=== PATIENT | female | born 1985 | race Caucasian/White ===

== ENCOUNTER 2016-10-22 03:49 | Emergency (ER) | payer BC ==
[~2016-10-22] VITALS: Ht 157.5 cm; Wt 57.5 kg
[~2016-10-22 03:49] MED LIST: PRENTAB26 PO
[2016-10-22 03:54] VITALS: TEMP 36.2; Ht 157.5 cm; Wt 57.5 kg
[2016-10-22] MEDS ORDERED: SODIUM CHLORIDE 0.9% 1000ML 1,000 ML IV STA (04:01)
[2016-10-22] MEDS ORDERED: ONDANSETRON INJ 2 MG/ML 2 ML VIAL IV STA (04:01)
--- NOTE | 2016-10-22 04:03 | EMERGENCY ROOM VISIT NOTE ---
History Report prepared by Abbie: Tahir Davis Under the Supervision of: Dr. Michael Richmond D.O. First contact with patient: 03:57 Chief Complaint: ABDOMINAL PAIN Stated Complaint: ABD CRAMPS AND PAIN History of Present Illness The patient is a 31 year old female who presents to the Emergency Room with complaints of waxing and waning lower abdominal "cramping" that began yesterday. The patient states that she initially experienced the cramping in her upper abdomen, but now the pain has radiated into her lower abdomen as well. She denies any recent vomiting, fevers, or vaginal bleeding. She claims that there is a minimal chance of . 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 A total of ten systems were reviewed and were otherwise negative. Past Medical & Surgical No significant past medical/surgical history. Family History Diabetes mellitus FH: heart disease Hypertension Social History Smoking Status: Never Smoker Drug Use: none Marital Status: Housing Status: lives with family Occupation Status: employed Current/Historical Medications Scheduled Citalopram Hydrobromide (Celexa), 10 MG PO DAILY Fluticasone Propionate (Nasal) (Flonase Allergy Relief), 2 [place] DAILY Multivitamin (Multivitamin), 1 TAB PO DAILY Scheduled PRN Diphenhydramine Hcl (Benadryl Allergy), 25-50 MG PO UD PRN for Anxiety and/or Sedation Hydroxyzine HCl (Hydroxyzine HCl), 10-20 MG PO TID PRN for Anxiety Allergies Coded Allergies: No Known Allergies (Unverified , 10/22/16) Physical Exam Vital Signs Date Time Temp Pulse Resp B/P (MAP) Pulse Ox O2 Delivery O2 Flow Rate FiO2 10/22/16 04:25 70 10/22/16 03:54 36.2 71 18 151/82 98 Room Air Physical Exam GENERAL: Awake, alert, well-appearing, in no distress HENT: Normocephalic, atraumatic. Oropharynx unremarkable. EYES: Normal conjunctiva. Sclera non-icteric. NECK: Supple. No nuchal rigidity. FROM. No JVD. RESPIRATORY: Clear to auscultation. CARDIAC: Regular rate, normal rhythm. Extremities warm and well perfused. Pulses equal. ABDOMEN: Soft, non-distended. No tenderness to palpation. No rebound or guarding. No masses. RECTAL: Deferred. MUSCULOSKELETAL: Chest examination reveals no tenderness. The back is symmetrical on inspection without obvious abnormality. There is no CVA tenderness to palpation. No joint edema. LOWER EXTREMITIES: Calves are equal size bilaterally and non-tender. No edema. No discoloration. NEURO: Normal sensorium. No sensory or motor deficits noted. SKIN: No rash or jaundice noted. Medical Decision & Procedures Laboratory Results 10/22/16 04:16 Red Blood Count 4.41, Mean Corpuscular Volume 87.3, Mean Corpuscular Hemoglobin 30.2, Mean Corpuscular Hemoglobin Concent 34.5, Mean Platelet Volume 10.2, Neutrophils (%) (Auto) 49.7, Lymphocytes (%) (Auto) 39.2, Monocytes (%) (Auto) 5.5, Eosinophils (%) (Auto) 4.7, Basophils (%) (Auto) 0.6, Neutrophils # (Auto) 3.42, Lymphocytes # (Auto) 2.69, Monocytes # (Auto) 0.38, Eosinophils # (Auto) 0.32, Basophils # (Auto) 0.04 10/22/16 04:16 Test 10/22/16 04:05 10/22/16 04:16 Urine Color YELLOW Urine Appearance CLEAR (CLEAR) Urine pH 5.5 (4.5-7.5) Urine Specific Lester 1.004 (1.000-1.030) Urine Protein NEG (NEG) Urine Glucose (UA) NEG (NEG) Urine Ketones NEG (NEG) Urine Occult Blood NEG (NEG) Urine Nitrite NEG (NEG) Urine Bilirubin NEG (NEG) Urine Urobilinogen NEG (NEG) Urine Leukocyte Esterase NEG (NEG) Urine Test NEG (NEG) White Blood Count 6.87 K/uL (4.8-10.8) Red Blood Count 4.41 M/uL (4.2-5.4) Hemoglobin 13.3 g/dL (12.0-16.0) Hematocrit 38.5 % (37-47) Mean Corpuscular Volume 87.3 fL (80-100) Mean Corpuscular Hemoglobin 30.2 pg (25-34) Mean Corpuscular Hemoglobin Concent 34.5 g/dl (32-36) Platelet Count 288 K/uL (130-400) Mean Platelet Volume 10.2 fL (7.4-10.4) Neutrophils (%) (Auto) 49.7 % Lymphocytes (%) (Auto) 39.2 % Monocytes (%) (Auto) 5.5 % Eosinophils (%) (Auto) 4.7 % Basophils (%) (Auto) 0.6 % Neutrophils # (Auto) 3.42 K/uL (1.4-6.5) Lymphocytes # (Auto) 2.69 K/uL (1.2-3.4) Monocytes # (Auto) 0.38 K/uL (0.11-0.59) Eosinophils # (Auto) 0.32 K/uL (0-0.5) Basophils # (Auto) 0.04 K/uL (0-0.2) RDW Standard Deviation 40.8 fL (36.4-46.3) RDW Coefficient of Variation 12.7 % (11.5-14.5) Immature Granulocyte % (Auto) 0.3 % Immature Granulocyte # (Auto) 0.02 K/uL (0.00-0.02) Anion Gap 6.0 mmol/L (3-11) Est Creatinine Clear Calc Drug Dose 69.6 ml/min Estimated GFR () 96.1 Estimated GFR (Non- 82.9 BUN/Creatinine Ratio 9.6 (10-20) Calcium Level 8.1 mg/dl (8.5-10.1) Total Bilirubin 0.4 mg/dl (0.2-1) Direct Bilirubin 0.1 mg/dl (0-0.2) Aspartate Amino Transf (AST/SGOT) 34 U/L (15-37) Alanine Aminotransferase (ALT/SGPT) 89 U/L (12-78) Alkaline Phosphatase 64 U/L (45-117) Total Protein 7.5 gm/dl (6.4-8.2) Albumin 4.5 gm/dl (3.4-5.0) Lipase 196 U/L (73-393) Laboratory results reviewed by me Medications Administered Medications (Trade) Dose Ordered Sig/Hernan Route Start Time Stop Time Status Last Admin Dose Admin Sodium Chloride 1,000 ml @ 999 mls/hr Q1H1M STAT IV 10/22/16 04:01 10/22/16 05:01 DC 10/22/16 04:16 999 MLS/HR Ondansetron HCl (Zofran Inj) 4 mg NOW STAT IV 10/22/16 04:01 10/22/16 04:03 DC 10/22/16 04:16 4 MG Dicyclomine HCl (Bentyl Inj) 20 mg NOW ONCE IM 10/22/16 04:15 10/22/16 04:16 DC 10/22/16 04:16 20 MG ED Course 0359: The patient was evaluated in room B12. A complete history and physical exam was performed. 0401: Ordered Zofran 4 mg IV, Sodium Chloride 1000 mL @ 999 mL/hr IV. 0415: Ordered Bentyl Inj 20 mg IM. 0503: I reevaluated the patient. She is resting in no distress. I discussed results and discharge instructions: [] verbalized understanding and agreement. The patient is ready for discharge. Medical Decision Differential Diagnosis includes; gastritis, gastroenteritis, colitis, biliary colic, Patient resting in no distress on repeat examination. Her abdominal pain appears positional on reexamination. There is no significant tenderness in the right upper or right lower quadrants. I discussed evaluation the patient she has a normal white blood cell; she is not , has normal urinalysis. Currently I do not suspect appendicitis. I have given the patient patient's at bedside information on increased abdominal pain fever anorexia and other reasons to return. Impression Primary Impression: Abdominal pain Scribe Attestation The scribe's documentation has been prepared under my direction and personally reviewed by me in its entirety. I confirm that the note above accurately reflects all work, treatment, procedures, and medical decision making performed by me. Departure Information Dispostion Home / Self-Care Prescriptions Dicyclomine Hcl (BENTYL) 20 Mg Tab 20 MG PO Q6, #10 TAB Prov: Michael Richmond, DO 10/22/16 Ondasetron Odt (ZOFRAN ODT) 4 Mg Tab 4 MG SL Q6H for Nausea, #6 TAB Prov: Michael Richmond, DO 10/22/16 Referrals No Doctor, Assigned (PCP) Patient Instructions Abdominal Pain - [facility], My [facility]
[2016-10-22] MEDS ORDERED: DICYCLOMINE HCL 10 MG/ML 2 ML AMP IM ONE (04:15)
[2016-10-22] MEDS ORDERED: FLUT0.15 NAE (04:28)
[2016-10-22] MEDS ORDERED: MULT-506 PO (04:28)
[2016-10-22] MEDS ORDERED: CITA10TA8 PO (04:28)
[2016-10-22] MEDS ORDERED: DIPH25CA65 PO (04:29)
[2016-10-22] MEDS ORDERED: ATR10 PO (04:29)
[2016-10-22 04:30] LABS: URINE APPEARANCE CLEAR (CLEAR); URINE BILIRUBIN NEG (NEG); URINE COLOR YELLOW; URINE NITRITE NEG (NEG); URINE PH 5.5 (4.5-7.5); URINE SPECIFIC GRAVITY 1.004 (1.000-1.030); UROBILINOGEN NEG (NEG); ZZUR CULT IF INDIC CLEAN CATCH NO
[2016-10-22 04:30] LABS: BASO % 0.6 %; BASO ABS # 0.04 K/uL (0-0.2); COMPLETE YES; EOS % 4.7 %; HEMATOCRIT 38.5 % (37-47); IG% 0.3 %; LYMPH % 39.2 %; LYMPH ABS # 2.69 K/uL (1.2-3.4); MEAN CELL VOLUME 87.3 fL (80-100); MEAN CORPUSCULAR HEMOGLOBIN 30.2 pg (25-34); MEAN CORPUSCULAR HGB CONC 34.5 g/dl (32-36); MEAN PLATELET VOLUME 10.2 fL (7.4-10.4); MONO % 5.5 %; NEUT % 49.7 %; PLATELET COUNT 288 K/uL (130-400); RED BLOOD COUNT 4.41 M/uL (4.2-5.4); WHITE BLOOD COUNT 6.87 K/uL (4.8-10.8)
[2016-10-22 04:45] LABS: MANUAL MICROSCOPIC REQUIRED? NO; REVIEW REQ? NO
[2016-10-22 04:52] LABS: BUN/CREATININE RATIO 9.6 (10-20); CALCIUM 8.1 mg/dl (8.5-10.1); CREATININE 0.91 mg/dl (0.60-1.20); POTASSIUM 3.7 mmol/L (3.5-5.1)
[2016-10-22] MEDS ORDERED: ONDA4TAB10 SL (05:11)
[2016-10-22] MEDS ORDERED: DICY20TA35 PO (05:11)
[2016-10-22 05:31] VITALS: BP 100/61; PULSE 56; O2SAT 100
== END 2016-10-22 05:32 | disposition home or self-care (01) ==
LOC: C.EDB 03:51
DX: R10.30 Lower abdominal pain, unspecified (principal); Z79.899 Other long term (current) drug therapy; Z83.3 Family history of diabetes mellitus; Z82.49 Family history of ischemic heart disease and other diseases of the circulatory system

== ENCOUNTER 2017-06-28 17:56 | Inpatient (IN) | payer BC, OTHER ==
[~2017-06-28] VITALS: Ht 157.5 cm; Wt 63.1 kg
[~2017-06-28 17:56] MED LIST changes: +ATR10 PO; +CITA10TA8 PO; +DIPH25CA65 PO; +FLUT0.15 NAE; +MULT-506 PO; -PRENTAB26 PO
[2017-06-28] MEDS ORDERED: ACETAMINOPHEN 500 MG TAB PO STA (18:07)
[2017-06-28] MEDS ORDERED: PRENTAB26 PO (18:15)
[2017-06-28] MEDS ORDERED: CITA20TA9 PO (18:15)
[2017-06-28] MEDS ORDERED: CHOL100010 PO (18:15)
[2017-06-28 18:30] LABS: HEMATOCRIT 29.5 % (37-47); HEMOGLOBIN 10.5 g/dL (12.0-16.0); MEAN CELL VOLUME 86.8 fL (80-100); MEAN CORPUSCULAR HEMOGLOBIN 30.9 pg (25-34); MEAN CORPUSCULAR HGB CONC 35.6 g/dl (32-36); MEAN PLATELET VOLUME 10.1 fL (7.4-10.4); PLATELET COUNT 192 K/uL (130-400); RED CELL DISTRIBUTION WIDTH SD 41.5 fL (36.4-46.3); WHITE BLOOD COUNT 14.64 K/uL (4.8-10.8)
[2017-06-28] MEDS ORDERED: SODIUM CHLORIDE 0.9% 1000ML 1,000 ML IV STA (18:30)
--- NOTE | 2017-06-28 18:31 | DIAGNOSTIC IMAGING REPORT ---
CHEST ONE VIEW PORTABLE HISTORY: cough COMPARISON: None. FINDINGS: Small focal airspace opacity within the right medial lung base. The left lung is clear. The heart is normal in size. No pleural effusions. No pneumothorax. IMPRESSION: Small focal airspace opacity in the right medial lung base consistent with a pneumonia. Electronically signed by: Ronaldo Harley M.D. 06/28/2017 6:30 PM Dictated Date/Time: 06/28/2017 6:29 PM
[2017-06-28 18:49] LABS: ALBUMIN 2.7 gm/dl (3.4-5.0); ALT/SGPT 15 U/L (12-78); AST/SGOT 10 U/L (15-37); BLOOD UREA NITROGEN 7 mg/dl (7-18); CARBON DIOXIDE 21 mmol/L (21-32); CREATININE 0.86 mg/dl (0.60-1.20); GLUCOSE 112 mg/dl (70-99); POTASSIUM 3.3 mmol/L (3.5-5.1); SODIUM 131 mmol/L (136-145)
[2017-06-28 18:52] LABS: ALKALINE PHOSPHATASE 57 U/L (45-117); TOTAL PROTEIN 6.6 gm/dl (6.4-8.2)
--- NOTE | 2017-06-28 18:54 | EMERGENCY ROOM VISIT NOTE ---
History Report prepared by Abbie: Luis Pope Under the Supervision of: Dr. Nathan Mustafa D.O. First contact with patient: 18:01 Chief Complaint: FLU LIKE SX Stated Complaint: RT SIDE CHEST PAIN, FEVER, CHILLS, ACHES,KLEIN, 16WKS History of Present Illness The patient is a 32 year old female who presents to the Emergency Room with complaints of persistent flu like symptoms for the past 3-4 days. She states that it started with a cough which has some phlegm, though she is not spitting anything out. She additionally states that she has a fever of 100.5, runny nose , ear pain, congestion, and a sore throat. The patient additionally notes that she has a worsening sharp chest pain that is worsened with twisting, bending, and turning. She states that she is unable to inhale deeply due to the pain. She is currently 16 weeks , and this is her third . She denies any past history of hypertension, high cholesterol, diabetes, and heart disease. Pt denies headache, change in vision, nausea, vomiting, diarrhea, calf swelling, pain with urination, and melena. Source of History: patient Onset: 3-4 days ago Position: other (global) Quality: other (flu like symptoms) Timing: other (persistent) Associated Symptoms: + fevers, + sorethroat, + chest pain Note: Associated symptoms: runny nose, ear pain, and congestion Review of Systems See HPI for pertinent positives & negatives. A total of 10 systems reviewed and were otherwise negative. Past Medical & Surgical Medical Problems: (1) Pneumonia Family History Diabetes mellitus FH: heart disease Hypertension Social History Smoking Status: Never Smoker Drug Use: none Marital Status: Housing Status: lives with family Occupation Status: employed Current/Historical Medications Scheduled Cholecalciferol (Vitamin D), 1 TAB PO DAILY Citalopram Hydrobromide (Celexa), 20 MG PO DAILY Multivit/Min/Iron/Fol Ac/Pren ( Vitamin), 1 TAB PO DAILY Allergies Coded Allergies: No Known Allergies (Unverified , 06/28/17) Physical Exam Vital Signs Date Time Temp Pulse Resp B/P (MAP) Pulse Ox O2 Delivery O2 Flow Rate FiO2 06/28/17 20:24 103 20 121/64 97 Room Air 06/28/17 17:58 39.1 118 20 118/64 98 Room Air Physical Exam GENERAL: Sitting up in bed, dry non-productive cough, no acute distress, non- toxic. EYE EXAM: normal conjunctiva. OROPHARYNX: no exudate, no erythema, lips, buccal mucosa, and tongue normal and mucous membranes are moist NECK: supple, no nuchal rigidity, no adenopathy, non-tender LUNGS: Clear to auscultation. Normal chest wall mechanics HEART: no murmurs, S1 normal and S2 normal CHEST: Acute reproducible anterior right chest wall pain worsened with movement of the upper extremity. ABDOMEN: Gravid uterus at the level of the umbilicus. Abdomen soft, non-tender, normo-active bowel sounds, no masses, no rebound or guarding. BACK: Back is symmetrical on inspection and there is no deformity, no midline tenderness, no CVA tenderness. SKIN: no rashes and no bruising UPPER EXTREMITIES: upper extremities are grossly normal. LOWER EXTREMITIES: Calves are equal bilaterally. No pitting edema. NEURO EXAM: Normal sensorium, cranial nerves II-XII grossly intact, normal speech, no gross weakness of arms, no gross weakness of legs. Medical Decision & Procedures ER Provider Diagnostic Interpretation: Radiology results as stated below per my review and the radiologist's interpretation: CHEST ONE VIEW PORTABLE HISTORY: cough COMPARISON: None. FINDINGS: Small focal airspace opacity within the right medial lung base. The left lung is clear. The heart is normal in size. No pleural effusions. No pneumothorax. IMPRESSION: Small focal airspace opacity in the right medial lung base consistent with a pneumonia. Electronically signed by: Ronaldo Harley M.D. 06/28/2017 6:30 PM Dictated Date/Time: 06/28/2017 6:29 PM Laboratory Results 06/28/17 18:20 Red Blood Count 3.40, Mean Corpuscular Volume 86.8, Mean Corpuscular Hemoglobin 30.9, Mean Corpuscular Hemoglobin Concent 35.6, Mean Platelet Volume 10.1, Neutrophils (%) (Auto) 90.0, Lymphocytes (%) (Auto) 3.9, Monocytes (%) (Auto) 5.7, Eosinophils (%) (Auto) 0.0, Basophils (%) (Auto) 0.1, Neutrophils # (Auto) 13.18, Lymphocytes # (Auto) 0.57, Monocytes # (Auto) 0.83, Eosinophils # (Auto) 0.00, Basophils # (Auto) 0.01 06/28/17 18:20 Test 06/28/17 18:20 06/28/17 18:28 06/28/17 18:37 White Blood Count 14.64 K/uL (4.8-10.8) Red Blood Count 3.40 M/uL (4.2-5.4) Hemoglobin 10.5 g/dL (12.0-16.0) Hematocrit 29.5 % (37-47) Mean Corpuscular Volume 86.8 fL (80-100) Mean Corpuscular Hemoglobin 30.9 pg (25-34) Mean Corpuscular Hemoglobin Concent 35.6 g/dl (32-36) Platelet Count 192 K/uL (130-400) Mean Platelet Volume 10.1 fL (7.4-10.4) Neutrophils (%) (Auto) 90.0 % Lymphocytes (%) (Auto) 3.9 % Monocytes (%) (Auto) 5.7 % Eosinophils (%) (Auto) 0.0 % Basophils (%) (Auto) 0.1 % Neutrophils # (Auto) 13.18 K/uL (1.4-6.5) Lymphocytes # (Auto) 0.57 K/uL (1.2-3.4) Monocytes # (Auto) 0.83 K/uL (0.11-0.59) Eosinophils # (Auto) 0.00 K/uL (0-0.5) Basophils # (Auto) 0.01 K/uL (0-0.2) RDW Standard Deviation 41.5 fL (36.4-46.3) RDW Coefficient of Variation 13.0 % (11.5-14.5) Immature Granulocyte % (Auto) 0.3 % Immature Granulocyte # (Auto) 0.05 K/uL (0.00-0.02) Large Platelets 1+ Anion Gap 9.0 mmol/L (3-11) Estimated GFR () 102.2 Estimated GFR (Non- 88.1 BUN/Creatinine Ratio 8.1 (10-20) Calcium Level 8.0 mg/dl (8.5-10.1) Total Bilirubin 0.3 mg/dl (0.2-1) Direct Bilirubin 0.1 mg/dl (0-0.2) Aspartate Amino Transf (AST/SGOT) 10 U/L (15-37) Alanine Aminotransferase (ALT/SGPT) 15 U/L (12-78) Alkaline Phosphatase 57 U/L (45-117) Total Protein 6.6 gm/dl (6.4-8.2) Albumin 2.7 gm/dl (3.4-5.0) Influenza Type A Antigen Neg for Influ A (NEG) Influenza Type B Antigen Neg for Influ B (NEG) Laboratory results per my review. Medications Administered Medications (Trade) Dose Ordered Sig/Hernan Route Start Time Stop Time Status Last Admin Dose Admin Acetaminophen (Tylenol Tab) 1,000 mg NOW STAT PO 06/28/17 18:07 06/28/17 18:09 DC 06/28/17 19:07 1,000 MG Sodium Chloride 1,000 ml @ 999 mls/hr Q1H1M STAT IV 06/28/17 18:30 06/28/17 19:30 DC 06/28/17 19:07 999 MLS/HR Amoxicillin/ Clavulanate Potassium (Augmentin Tab) 875 mg ONE ONCE PO 06/28/17 19:00 06/28/17 19:01 DC 06/28/17 19:07 875 MG Ceftriaxone Sodium (Rocephin Inj) 1 gm NOW STAT IV 06/28/17 20:30 06/28/17 20:31 DC 06/28/17 20:47 1 GM Ondansetron HCl (Zofran Inj) 4 mg NOW STAT IV 06/28/17 20:30 06/28/17 20:31 DC 06/28/17 20:47 4 MG Sodium Chloride 500 ml @ 999 mls/hr Q31M STAT IV 06/28/17 20:30 06/28/17 21:00 DC 06/28/17 20:47 999 MLS/HR ECG Indication: chest pain Rate (beats per minute): 98 Rhythm: sinus rhythm Findings: RBBB (incomplete), other (normal axis) Change: Patient's EKG interpreted by me. ED Course ED COURSE: Vital signs were reviewed and showed febrile and tachycardia The patients medical record was reviewed The above diagnostic studies were performed and reviewed. ED treatments and interventions as stated above. 1801: The patient was evaluated in room A12. A complete history and physical examination was performed. 1807: Tylenol Tab 1000mg PO 1830: Sodium Chloride 1000 ml @ 999 mls/hr IV 0: I reassessed the patient, and I updated her on the plan. 1900: Augmentin 875mg PO 2029: Sodium Chloride 500 ml @ 999 mls/hr IV, Zofran 4mg IV, Rocephin 1gm IV 2031: I discussed the patient's case with the precision jig grinder [facility] physician, and they recommended that the patient be evaluated by a hospitalist. 2034: I reevaluated the patient, and I discussed the plan with her. 2046: Upon reevaluation, the patient is doing well. Bedside ultrasound reveals IUP and heart rate of 160 .I discussed my findings with the patient and she understands and agrees with the treatment plan. Based on the patients age, coexisting illnesses, exam and lab findings the decision to treat as an inpatient was made. The patient remained stable while under my care. The patient will be evaluated for further management. 2053: I reviewed the patient's case with Dr. Walker Carlos Hospitalist. She will evaluate the patient for further management. Medical Decision Differential diagnoses includes but is not limited to acute coronary syndrome, myocardial infarction, pericarditis, pulmonary embolus, aortic dissection, pneumonia, pneumothorax, musculoskeletal, shingles, esophageal. Patient is a 32-year-old female who is 16 weeks without complications that presents to ER for pleuritic right-sided chest pain associated with a cough, runny nose and sore throat and ear congestion. Symptoms have been present for the past 4 days. Vital show that she is febrile and slightly tachycardic. Chest x-ray confirms a right lower lobe infiltrate consistent with her history. Pleuritic pain is reproducible on exam and with the pneumonia I do favor this is likely cause of this and a PE is significantly less likely. CBC shows a mild leukocytosis of 14,000. BMP shows sodium of 131 and potassium of 3.3. Bilirubin, LFTs were normal. EKG was fairly unremarkable. Patient was given fluids, Tylenol and Augmentin which category B. She was updated at bedside. I did discuss case with PIN SETTER. She did vomit the Augmentin. Bedside ultrasound shows IUP with heart rate of 160. Patient was admitted to internal medicine with fever, tachycardia and leukocytosis secondary to pneumonia. Medication Reconcilliation Current Medication List: was personally reviewed by me Blood Pressure Screening Patient's blood pressure: Normal blood pressure Consults Time Called: 2028 Consulting Physician: call circuit worker [facility] OB physician Returned Call: 2031 I discussed the patient's case with the precision jig grinder [facility] physician, and they recommended that the patient be evaluated by a hospitalist. Additional Consults: Time Called: 2049 Consulted Physician: Dr. Walker [facility] Returned Call: 2053 Additional Comments: I reviewed the patient's case with Dr. Walker Villanueva. She will evaluate the patient for further management. Impression Primary Impression: Pneumonia Additional Impression: Anemia Scribe Attestation The scribe's documentation has been prepared under my direction and personally reviewed by me in its entirety. I confirm that the note above accurately reflects all work, treatment, procedures, and medical decision making performed by me. Departure Information Dispostion Being Evaluated By Hospitalist Referrals Rona Keene D.O. (PCP) Patient Instructions My [facility] Problem Qualifiers Primary Impression: Pneumonia Pneumonia type: due to unspecified organism Laterality: unspecified laterality Lung location: unspecified part of lung Qualified Codes: J18.9 - Pneumonia, unspecified organism Additional Impression: Anemia Anemia type: unspecified type Qualified Codes: D64.9 - Anemia, unspecified
[2017-06-28 18:57] LABS: BASO % 0.1 %; BASO ABS # 0.01 K/uL (0-0.2); IG# 0.05 K/uL (0.00-0.02); LYMPH % 3.9 %; LYMPH ABS # 0.57 K/uL (1.2-3.4); MONO % 5.7 %; MONO ABS # 0.83 K/uL (0.11-0.59); NEUT ABS # 13.18 K/uL (1.4-6.5)
[2017-06-28] MEDS ORDERED: AMOXICILLIN/CLAVULANATE TAB 875 MG TAB PO ONE (19:00)
[2017-06-28 19:06] LABS: INFLUENZA B ANTIGEN Neg for Influ B (NEG)
[2017-06-28] MEDS ORDERED: CEFTRIAXONE SOD INJ 1 GM ADDVIAL IV STA (20:30)
[2017-06-28] MEDS ORDERED: ONDANSETRON INJ 2 MG/ML 2 ML VIAL IV STA (20:30)
[2017-06-28] MEDS ORDERED: SODIUM CHLORIDE 0.9% 500ML 500 ML IV STA (20:30)
[2017-06-28] MEDS ORDERED: ACETAMINOPHEN 325 MG TAB PO PRN (22:15)
--- NOTE | 2017-06-28 22:55 | History and Physical ---
History & Physical Date & Time of Service: Jun 28, 2017 at 22:27 Chief Complaint: Rt Side Chest Pain, Fever, Chills, Aches,Bush, 16WKS Primary Care Physician: Rona Keene D.O. History of Present Illness Source: patient Patient is a 32 yr female with PMH of Depression, anxiety, Vitamin D deficiency , and allergies who is currently 16 weeks presents with history of fever, cough, right sided pleuritic chest pain and post nasal drip since 3 days duration. Patient's chest pain is right sided, sharp to dull, increases with deep inspiration. She has been having low grade fever since 2 days duration. Reports associated mild SOB and cough with intermittent expectoration. She received Augmentin in ED which she vomited secondary to nausea. CXR is suggestive of Pneumonia and Flu screen is negative. Had monitor was checked in ED. Denies any history of dizziness, pedal edema, wheezing, hemoptysis, fall, weakness, numbness, change in vision, bowel/bladder habit changes, abdominal pain, diarrhea, weight loss, dysuria, recent travel, sick contact, recent change in medications. Family History Diabetes mellitus FH: heart disease Hypertension Mother:HTN Father:Thyroid disease Social History Smoking Status: Never Smoker Alcohol Use: none Drug Use: none Marital Status: Occupational Status: employed Immunizations History of Influenza Vaccine: No History of Tetanus Vaccine?: No Allergies Coded Allergies: No Known Allergies (Unverified , 06/28/17) Home Medications Scheduled Cholecalciferol (Vitamin D), 1 TAB PO DAILY Citalopram Hydrobromide (Celexa), 20 MG PO DAILY Multivit/Min/Iron/Fol Ac/Pren ( Vitamin), 1 TAB PO DAILY Review of Systems See HPI for pertinent positives & negatives. A total of 10 systems reviewed and were otherwise negative. Physical Exam Vital Signs Date Time Temp Pulse Resp B/P (MAP) Pulse Ox O2 Delivery O2 Flow Rate FiO2 06/28/17 20:24 103 20 121/64 97 Room Air 06/28/17 17:58 39.1 118 20 118/64 98 Room Air General Appearance: WD/WN, no apparent distress Head: normocephalic, atraumatic Eyes: normal inspection, PERRL, EOMI, sclerae normal ENT: normal ENT inspection, hearing grossly normal Neck: supple, trachea midline Respiratory/Chest: chest non-tender, lungs clear, no respiratory distress, no accessory muscle use, + decreased breath sounds (on right side) Cardiovascular: regular rate, rhythm, no edema, no murmur, + tachycardia Abdomen/GI: normal bowel sounds, non tender, soft, + pertinent finding ( ) Back: normal inspection Extremities/Musculoskelatal: normal inspection, no pedal edema Neurologic/Psych: principal investigator II-XII nml as tested, no motor/sensory deficits, alert, normal mood/affect, oriented x 3 Skin: normal color, warm/dry Diagnostics Laboratory Results Results Past 24 Hours Test 06/28/17 18:20 06/28/17 18:28 06/28/17 22:23 Range/Units White Blood Count 14.64 4.8-10.8 K/uL Red Blood Count 3.40 4.2-5.4 M/uL Hemoglobin 10.5 12.0-16.0 g/dL Hematocrit 29.5 37-47 % Mean Corpuscular Volume 86.8 80-100 fL Mean Corpuscular Hemoglobin 30.9 25-34 pg Mean Corpuscular Hemoglobin Concent 35.6 32-36 g/dl Platelet Count 192 130-400 K/uL Mean Platelet Volume 10.1 7.4-10.4 fL Neutrophils (%) (Auto) 90.0 % Lymphocytes (%) (Auto) 3.9 % Monocytes (%) (Auto) 5.7 % Eosinophils (%) (Auto) 0.0 % Basophils (%) (Auto) 0.1 % Neutrophils # (Auto) 13.18 1.4-6.5 K/uL Lymphocytes # (Auto) 0.57 1.2-3.4 K/uL Monocytes # (Auto) 0.83 0.11-0.59 K/uL Eosinophils # (Auto) 0.00 0-0.5 K/uL Basophils # (Auto) 0.01 0-0.2 K/uL RDW Standard Deviation 41.5 36.4-46.3 fL RDW Coefficient of Variation 13.0 11.5-14.5 % Immature Granulocyte % (Auto) 0.3 % Immature Granulocyte # (Auto) 0.05 0.00-0.02 K/uL Large Platelets 1+ Sodium Level 131 136-145 mmol/L Potassium Level 3.3 3.5-5.1 mmol/L Chloride Level 101 98-107 mmol/L Carbon Dioxide Level 21 21-32 mmol/L Anion Gap 9.0 3-11 mmol/L Blood Urea Nitrogen 7 7-18 mg/dl Creatinine 0.86 0.60-1.20 mg/dl Estimated GFR () 102.2 Estimated GFR (Non- 88.1 BUN/Creatinine Ratio 8.1 10-20 Random Glucose 112 70-99 mg/dl Calcium Level 8.0 8.5-10.1 mg/dl Total Bilirubin 0.3 0.2-1 mg/dl Direct Bilirubin 0.1 0-0.2 mg/dl Aspartate Amino Transf (AST/SGOT) 10 15-37 U/L Alanine Aminotransferase (ALT/SGPT) 15 12-78 U/L Alkaline Phosphatase 57 45-117 U/L Total Protein 6.6 6.4-8.2 gm/dl Albumin 2.7 3.4-5.0 gm/dl Influenza Type A Antigen Neg for Influ A NEG Influenza Type B Antigen Neg for Influ B NEG Microbiology Results 06/28/17 Blood Culture, Ordered Pending 06/28/17 Blood Culture, Ordered Pending 06/28/17 Group A Streptococcus Screen - Final, Resulted SPECIMEN NEGATIVE FOR GROUP A BETA ST... 06/28/17 Group A Streptococcus Screen (RAJESH), Resulted Pending Diagnostic Radiology CXR: Small focal airspace opacity in the right medial lung base consistent with a pneumonia. EKG EKG: Normal sinus rhythm Incomplete right bundle branch block Impression Assessment and Plan Sepsis: CAP: Presented with Pleuritic chest pain, cough, fever, tachycardia, elevated WBCs CXR: suggestive of Small focal airspace opacity in the right medial lung base consistent with a pneumonia. Could not tolerated PO Abx secondary to nausea/vomiting Start IV Ceftriaxone, Azithromycin (Category B) IV Fluids Oxygen support PRN Blood/Sputum cultures check lactate levels Incentive Spirometry Flu screen negative, check PCR Droplet isolation for now Hyponatremia/Hypokalemia: Monitor and replace IV fluids Anemia in ; Monitor Hb No bleeding issues : , 16 weeks monitor checked in ED Consult OBGYN Continue Depression, anxiety: Was Celexa (Patient currently takes) Celexa is Category C: so hold Celexa for now Vitamin D deficiency; Continue supplements DVT Px: SCDs Code Status: Full Code Disposition: Monitor in Telemetry VTE Prophylaxis VTE Risk Assessment Done? Y/N: Yes Risk Level: Low
[2017-06-28] MEDS: NSS + 20MEQ KCL 1000ML 1,000 ML IV SCH (23:21)
[2017-06-28] MEDS ORDERED: CEFTRIAXONE PHARMACY CONSULT IN PROGRESS PRN (23:24)
[2017-06-28] MEDS ORDERED: PATIENT'S HEIGHT AND/OR WEIGHT NEEDED SCH (23:30)
[2017-06-28 23:52] VITALS: BP 108/65; PULSE 97; TEMP 36.8; O2SAT 98; Ht 157.5 cm; Wt 63.1 kg
[2017-06-29] VITALS (9 sets, daily range): BP systolic 100–112; BP diastolic 47–59; PULSE 84–102; TEMP 36.5–37.7; O2SAT 95–100
[2017-06-29] MEDS ORDERED: AZITHROMYCIN 500 MG / D5W 250 ML IV SCH ×2
[2017-06-29 00:33] LABS: INFLUENZA A PCR Neg for Influ A (NEG); INFLUENZA B PCR Neg for Influ B (NEG)
--- NOTE | 2017-06-29 02:06 | GYNECOLOGICAL CONSULTATION ---
DATE OF CONSULTATION: 06/28/2017 CHIEF COMPLAINT: Admission for pneumonia, 16 weeks . HISTORY OF PRESENT ILLNESS: The patient is a 32-year-old G3, P2-0-0-2, at 16 weeks and 3 days gestation by her last menstrual period which was on 04/06/2017. She has been having right-sided chest pain, cough, fever, chills for the last 4 days, it got worse last night. She presented to ER and was found to have pneumonia and being admitted to medical department for IV antibiotics. She received Augmentin in the ER and her flu screen testing was negative. Her has been uncomplicated except this current admission. She denies any OB complaints. Denies abdominal pain, cramping, vaginal bleeding or spotting. She has not had official ultrasound in the office. A bedside ultrasound in the ER showed normal heart rate, see their note for details. This is her 3rd . PAST MEDICAL HISTORY: As above, history of depression, carpal tunnel syndrome, allergic rhinitis. PAST SURGICAL HISTORY: Shattuck teeth extraction and cryotherapy of cervix. MEDICATIONS: vitamins, vitamin D 1000 units once a day, Celexa 20 mg daily. ALLERGIES: No known drug allergies. SOCIAL HISTORY: The patient denies any smoking, alcohol or drug use. OBSTETRICAL HISTORY: The patient has history of 2 full-term spontaneous vaginal deliveries, 5 and 8 years ago. PHYSICAL EXAMINATION: VITAL SIGNS: Her pulse is 98, respiration 20, blood pressure 121/64, temperature was 39.1 in the ER, pulse ox 97% on room air. CARDIOVASCULAR: S1, S2, RRR. Mild tachycardia. ABDOMEN: Soft, nontender, gravid. heart rate with Doppler is 152. EXTREMITIES: Nontender, no edema. PELVIC: Deferred. No vaginal bleeding. LABORATORY DATA: Her white count is 14.6, H&H of 10.5 and 29.5, platelets 192. Lactic acid is 0.7, creatinine 0.8. ALT and AST are normal. Chest x-ray: Small focal airspace opacity in the right medial lung base consistent with pneumonia. ASSESSMENT AND PLAN: The patient is a 32-year-old G3, P2-0-0-2, at 16 weeks and 3 days of gestation, being admitted to medicine for pneumonia, on IV Rocephin and azithromycin. Agree with treatment above and plan to start iron for anemia and obtain official ultrasound by radiology department and continue to monitor closely. MTDD
[2017-06-29 06:45] LABS: HEMATOCRIT 24.9 % (37-47); HEMOGLOBIN 8.7 g/dL (12.0-16.0); MEAN CELL VOLUME 87.1 fL (80-100); MEAN CORPUSCULAR HEMOGLOBIN 30.4 pg (25-34); MEAN CORPUSCULAR HGB CONC 34.9 g/dl (32-36); MEAN PLATELET VOLUME 10.4 fL (7.4-10.4); PLATELET COUNT 161 K/uL (130-400); RED CELL DISTRIBUTION WIDTH CV 13.1 % (11.5-14.5); RED CELL DISTRIBUTION WIDTH SD 42.1 fL (36.4-46.3); WHITE BLOOD COUNT 9.95 K/uL (4.8-10.8)
--- NOTE | 2017-06-29 06:53 | DIAGNOSTIC IMAGING REPORT ---
LIMITED (US) HISTORY: 32 years-old Female DATING pelvic ultrasound in a patient to confirm gestational age. Patient presents with acute pneumonia COMPARISON: None available TECHNIQUE: Multiple real-time sonographic images of the deep pelvic structures were obtained transabdominally assessing grayscale appearance and color flow FINDINGS: Anteflexed gravid uterus is noted. Cervical length is 4.2 cm, within normal limits. Placenta is noted within an anterior location and demonstrates ill-defined central areas of decreased echogenicity which may reflect venous lakes. LARON is 10.5, lower limits of normal. Head circumference measures 14.0 cm, correlating with estimated gestational age of 17 weeks 3 days. BPD measures 3.6 cm correlating with estimated gestational age of 17 weeks 1 day. Abdominal circumference measures 11.5 cm correlating with estimated gestational age of 17 weeks 2 days. Femur length measures 2.2 cm correlating with estimated gestational age of 16 weeks 3 days. heart rate measures 149 bpm. movements were reported during the exam by the retail advisor. Fetus is in a breech presentation. Overall gestational age is calculated at 16 weeks 3 days with estimated date of delivery calculated at 12/10/2017. IMPRESSION: 1. Single living intrauterine gestation with estimated gestational age by ultrasound of 16 weeks 3 days and estimated date of delivery calculated at 12/10/2017. 2. Suggested venous lakes of the placenta. 3. LARON is within the lower limits of normal. Attention at follow-up recommended. The above report was generated using voice recognition software. It may contain grammatical, syntax or spelling errors. Electronically signed by: Yoan Sexton M.D. 06/29/2017 6:52 AM Dictated Date/Time: 06/29/2017 6:43 AM
[2017-06-29 07:19] LABS: CALCIUM 7.3 mg/dl (8.5-10.1); CREATININE 0.61 mg/dl (0.60-1.20); POTASSIUM 3.6 mmol/L (3.5-5.1)
[2017-06-29] MEDS: PRENATAL VITAMIN TAB PO SCH (09:12)
[2017-06-29] MEDS: FERROUS SULFATE 325 MG TAB PO SCH (09:12)
--- NOTE | 2017-06-29 09:40 | Progress Note ---
Medicine Progress Note Date & Time of Visit: Jun 29, 2017 at 09:33. Subjective patient seen resting in bed comfortable, speaks in sentences with no effort states she feels improved compared to yesterday right sided chest discomfort, dyspnea on exertion, cough improving Objective Last 8 Hrs Date Time Temp Pulse Resp B/P (MAP) Pulse Ox O2 Delivery O2 Flow Rate FiO2 06/29/17 08:03 97 Room Air 06/29/17 08:00 Room Air 06/29/17 07:56 37.0 95 16 111/59 (76) 97 Room Air 0.0 06/29/17 07:21 37.4 91 14 100/47 (64) 95 Room Air 06/29/17 04:00 97 Room Air 06/29/17 03:38 37.7 102 18 112/57 (75) 97 Room Air Physical Exam: General- oriented x 3, not in distress, speaks in sentences with no effort Head- atraumatic Eyes- PERRL, EOMI, anicteric ENT- oropharynx clear Neck- supple, no JVD, no adenopathy, no thyromegaly; carotids +2/2 Lungs- mild rhonchi right base, no wheezing, good air entry bilaterally Heart- normal rate, regular rhythm; no murmurs Abdomen- normal bowel sounds, soft, nontender Extremities- no pretibial edema, no calf tenderness; peripheral pulses intact Neuro- alert, oriented x 3; no gross focal neuro deficits Skin- warm & dry Laboratory Results: Last 24 Hours Test 06/28/17 18:20 06/28/17 18:28 06/28/17 18:37 06/28/17 22:53 White Blood Count 14.64 K/uL Red Blood Count 3.40 M/uL Hemoglobin 10.5 g/dL Hematocrit 29.5 % Mean Corpuscular Volume 86.8 fL Mean Corpuscular Hemoglobin 30.9 pg Mean Corpuscular Hemoglobin Concent 35.6 g/dl Platelet Count 192 K/uL Mean Platelet Volume 10.1 fL Neutrophils (%) (Auto) 90.0 % Lymphocytes (%) (Auto) 3.9 % Monocytes (%) (Auto) 5.7 % Eosinophils (%) (Auto) 0.0 % Basophils (%) (Auto) 0.1 % Neutrophils # (Auto) 13.18 K/uL Lymphocytes # (Auto) 0.57 K/uL Monocytes # (Auto) 0.83 K/uL Eosinophils # (Auto) 0.00 K/uL Basophils # (Auto) 0.01 K/uL RDW Standard Deviation 41.5 fL RDW Coefficient of Variation 13.0 % Immature Granulocyte % (Auto) 0.3 % Immature Granulocyte # (Auto) 0.05 K/uL Large Platelets 1+ Sodium Level 131 mmol/L Potassium Level 3.3 mmol/L Chloride Level 101 mmol/L Carbon Dioxide Level 21 mmol/L Anion Gap 9.0 mmol/L Blood Urea Nitrogen 7 mg/dl Creatinine 0.86 mg/dl Estimated GFR () 102.2 Estimated GFR (Non- 88.1 BUN/Creatinine Ratio 8.1 Random Glucose 112 mg/dl Calcium Level 8.0 mg/dl Total Bilirubin 0.3 mg/dl Direct Bilirubin 0.1 mg/dl Aspartate Amino Transf (AST/SGOT) 10 U/L Alanine Aminotransferase (ALT/SGPT) 15 U/L Alkaline Phosphatase 57 U/L Total Protein 6.6 gm/dl Albumin 2.7 gm/dl Influenza Type A Antigen Neg for Influ A Influenza Type B Antigen Neg for Influ B Influenza Type A (RT-PCR) Neg for Influ A Influenza Type B (RT-PCR) Neg for Influ B Lactic Acid Level 0.7 mmol/L Test 06/29/17 06:26 06/29/17 09:31 White Blood Count 9.95 K/uL Red Blood Count 2.86 M/uL Hemoglobin 8.7 g/dL Hematocrit 24.9 % Mean Corpuscular Volume 87.1 fL Mean Corpuscular Hemoglobin 30.4 pg Mean Corpuscular Hemoglobin Concent 34.9 g/dl RDW Standard Deviation 42.1 fL RDW Coefficient of Variation 13.1 % Platelet Count 161 K/uL Mean Platelet Volume 10.4 fL Sodium Level 133 mmol/L Potassium Level 3.6 mmol/L Chloride Level 106 mmol/L Carbon Dioxide Level 23 mmol/L Anion Gap 4.0 mmol/L Blood Urea Nitrogen 5 mg/dl Creatinine 0.61 mg/dl Est Creatinine Clear Calc Drug Dose 113.4 ml/min Estimated GFR () 137.1 Estimated GFR (Non- 118.3 BUN/Creatinine Ratio 8.6 Random Glucose 113 mg/dl Calcium Level 7.3 mg/dl Magnesium Level 2.0 mg/dl Date/Time Source Procedure Growth Status 06/28/17 22:53 Blood Blood Culture Pending Received 06/28/17 22:45 Blood Blood Culture Pending Received 06/28/17 18:28 Throat Group A Streptococcus Screen - Final SPECIMEN NEGATIVE FOR GROUP A BETA ST... Resulted 06/28/17 18:28 Throat Group A Streptococcus Screen (RAJESH) Pending Resulted Assessment & Plan SEPSIS SECONDARY TO PNEUMONIA, COMMUNITY ACQUIRED, RIGHT LOWER LOBE Presented with Pleuritic chest pain, cough, fever, tachycardia, elevated WBCs CXR: suggestive of Small focal airspace opacity in the right medial lung base consistent with a pneumonia. Could not tolerated PO Abx secondary to nausea/vomiting - Flu tests: negative Sputum culture: pending Blood cultures: pending - clinically improving fever, symptoms improving - continue empiric Ceftri + Azithro IV Day 2 IV NSS + K - monitor possible d/c in AM with PO Augmentin + Azithro to complete 7 days : , 16 weeks US: 1. Single living intrauterine gestation with estimated gestational age by ultrasound of 16 weeks 3 days and estimated date of delivery calculated at 12/10/2017. 2. Suggested venous lakes of the placenta. 3. LARON is within the lower limits of normal. Attention at follow-up recommended. - suture winder hand on board appears stable overall Hyponatremia/Hypokalemia: - improved - monitor Anemia in ; Hg 10 to 8.7 no signs of bleeding monitor Impaired Fasting Glucose - check A1c Depression, anxiety: Was Celexa (Patient currently takes) Celexa is Category C: so hold Celexa for now Vitamin D deficiency; Continue supplements DVT Px: SCDs Code Status: Full Code Disposition: possible d/c in AM when medically stable Current Inpatient Medications: Current Inpatient Medications Medications (Trade) Dose Ordered Sig/[place]an Route Start Time Stop Time Status Last Admin Dose Admin Potassium Chloride/Sodium Chloride 1,000 ml @ 75 mls/hr [id number] IV 06/28/17 23:30 07/28/17 23:29 06/28/17 23:21 75 MLS/HR Acetaminophen (Tylenol Tab) 650 mg Q4H PRN PO 06/28/17 22:15 07/28/17 22:14 Miscellaneous Information 1 ea DAILY PRN N/A 06/28/17 23:24 07/28/17 23:23 Prenat Multivit/ [place]/Iron/Folic Ac ( Vitamin Tab) 1 tab DAILY PO 06/29/17 09:00 07/29/17 08:59 06/29/17 09:12 1 TAB Miscellaneous Information (Order Awaiting Action) 1 ea QS N/A 06/29/17 08:00 07/29/17 07:59 Ceftriaxone Sodium 1 gm/ Dextrose 50 ml @ 100 mls/hr DAILY@2100 IV 06/29/17 21:00 07/04/17 21:29 Ferrous Sulfate (Feosol Tab) 325 mg QAM PO 06/29/17 09:00 07/29/17 08:59 06/29/17 09:12 325 MG Azithromycin 250 mg/Dextrose 252.5 ml @ 126.25 mls/ hr DAILY@0000 IV 06/30/17 00:00 07/05/17 01:59
[2017-06-29] MEDS: CHOLECALCIFEROL PO SCH (13:33)
[2017-06-29] MEDS: NSS + 20MEQ KCL 1000ML 1,000 ML IV SCH ×2 (16:44→23:49)
--- NOTE | 2017-06-29 18:16 | Progress Note ---
Progress Note Date of Service Jun 29, 2017. Progress Note OB Note Pt doing well s/p Pneumonia, at 16 weeks C/o RL pain - Irregular Reviewed pelvic sonogram Reviewed sono report with pt Cl>4.2cm FHR with dopplers; 150's
[2017-06-29] MEDS: CEFTRIAXONE SOD INJ 1000 MG in DEXTROSE 5% 50ML IV SCH (21:05)
[2017-06-29] MEDS ORDERED: COUGH DROP (SUGAR FREE) LOZ 24 LOZ/1 BOX LOZ PRN (22:45)
[2017-06-29] MEDS: AZITHROMYCIN 250 MG / D5W 250 ML IV SCH ×2 (23:49)
[2017-06-30 04:00] VITALS: BP 83/41; PULSE 76; TEMP 36.3; O2SAT 100
[2017-06-30 06:22] LABS: BASO % 0.2 %; BASO ABS # 0.01 K/uL (0-0.2); EOS % 2.9 %; EOS ABS # 0.17 K/uL (0-0.5); HEMATOCRIT 26.2 % (37-47); HEMOGLOBIN 8.9 g/dL (12.0-16.0); IG# 0.02 K/uL (0.00-0.02); LYMPH ABS # 0.75 K/uL (1.2-3.4); MEAN CELL VOLUME 87.6 fL (80-100); MEAN CORPUSCULAR HEMOGLOBIN 29.8 pg (25-34); MEAN PLATELET VOLUME 10.3 fL (7.4-10.4); MONO % 5.9 %; MONO ABS # 0.34 K/uL (0.11-0.59); NEUT % 77.7 %; NEUT ABS # 4.49 K/uL (1.4-6.5); PLATELET COUNT 177 K/uL (130-400); RED CELL DISTRIBUTION WIDTH CV 13.4 % (11.5-14.5); RED CELL DISTRIBUTION WIDTH SD 42.9 fL (36.4-46.3); WHITE BLOOD COUNT 5.78 K/uL (4.8-10.8)
[2017-06-30 06:37] LABS: BLOOD UREA NITROGEN 4 mg/dl (7-18); CALCIUM 7.7 mg/dl (8.5-10.1); CARBON DIOXIDE 25 mmol/L (21-32); CREATININE 0.45 mg/dl (0.60-1.20); GLUCOSE 78 mg/dl (70-99); POTASSIUM 3.7 mmol/L (3.5-5.1); SODIUM 138 mmol/L (136-145)
[2017-06-30 07:24] VITALS: BP 107/55; PULSE 80; TEMP 36.6; O2SAT 98
[2017-06-30] MEDS: PRENATAL VITAMIN TAB PO SCH (10:38)
[2017-06-30] MEDS: NSS + 20MEQ KCL 1000ML 1,000 ML IV SCH ×2 (10:38→21:37)
[2017-06-30] MEDS: CHOLECALCIFEROL PO SCH (10:38)
[2017-06-30] MEDS: FERROUS SULFATE 325 MG TAB PO SCH (10:38)
[2017-06-30 11:25] VITALS: BP 98/52; PULSE 74; TEMP 36.8; O2SAT 99
[2017-06-30] MEDS ORDERED: ENOXAPARIN 40 MG/0.4 ML SYR SQ ONE (13:18)
--- NOTE | 2017-06-30 13:24 | Progress Note ---
Medicine Progress Note Date & Time of Visit: Jun 30, 2017 at 13:20. Subjective seen resting in bed, appears comfortable breathing continues to improve coughing less no fever/chills denies dizziness, headache, chest pain, abdominal pain, problems with BM or urination feels somewhat "down" today reassured patient and she seemed to be better Objective Last 8 Hrs Date Time Temp Pulse Resp B/P (MAP) Pulse Ox O2 Delivery O2 Flow Rate FiO2 06/30/17 12:00 Room Air 06/30/17 11:25 36.8 74 15 98/52 (67) 99 Room Air 06/30/17 08:00 Room Air 06/30/17 07:24 36.6 80 16 107/55 (72) 98 Room Air Physical Exam: General- oriented x 3, not in distress, speaks in sentences with no effort Eyes- anicteric Neck- supple, no JVD Lungs- clear breath sounds bilaterally, no rales/wheezes Heart- normal rate, regular rhythm; no murmurs Abdomen- normal bowel sounds, soft, nontender Extremities- no pretibial edema, no calf tenderness Neuro- alert, oriented x 3; no gross focal neuro deficits Skin- warm & dry Laboratory Results: Last 24 Hours Test 06/30/17 05:59 White Blood Count 5.78 K/uL Red Blood Count 2.99 M/uL Hemoglobin 8.9 g/dL Hematocrit 26.2 % Mean Corpuscular Volume 87.6 fL Mean Corpuscular Hemoglobin 29.8 pg Mean Corpuscular Hemoglobin Concent 34.0 g/dl Platelet Count 177 K/uL Mean Platelet Volume 10.3 fL Neutrophils (%) (Auto) 77.7 % Lymphocytes (%) (Auto) 13.0 % Monocytes (%) (Auto) 5.9 % Eosinophils (%) (Auto) 2.9 % Basophils (%) (Auto) 0.2 % Neutrophils # (Auto) 4.49 K/uL Lymphocytes # (Auto) 0.75 K/uL Monocytes # (Auto) 0.34 K/uL Eosinophils # (Auto) 0.17 K/uL Basophils # (Auto) 0.01 K/uL RDW Standard Deviation 42.9 fL RDW Coefficient of Variation 13.4 % Immature Granulocyte % (Auto) 0.3 % Immature Granulocyte # (Auto) 0.02 K/uL Red Blood Cell Morphology Unremarkable Sodium Level 138 mmol/L Potassium Level 3.7 mmol/L Chloride Level 109 mmol/L Carbon Dioxide Level 25 mmol/L Anion Gap 4.0 mmol/L Blood Urea Nitrogen 4 mg/dl Creatinine 0.45 mg/dl Est Creatinine Clear Calc Drug Dose 153.0 ml/min Estimated GFR () > 150.0 Estimated GFR (Non- 130.7 BUN/Creatinine Ratio 9.2 Random Glucose 78 mg/dl Calcium Level 7.7 mg/dl Assessment & Plan SEPSIS SECONDARY TO PNEUMONIA, COMMUNITY ACQUIRED, RIGHT LOWER LOBE Presented with Pleuritic chest pain, cough, fever, tachycardia, elevated WBCs CXR: suggestive of Small focal airspace opacity in the right medial lung base consistent with a pneumonia. Could not tolerated PO Abx secondary to nausea/vomiting - Flu tests: negative Sputum culture: pending collection Blood cultures: negative so far Strep: negative - clinically improving, BP on the lower side fever, symptoms improving - continue empiric Ceftri + Azithro IV Day 3 IV NSS + K - monitor possible d/c in AM with PO Augmentin + Azithro to complete 7 days : , 16 weeks US: 1. Single living intrauterine gestation with estimated gestational age by ultrasound of 16 weeks 3 days and estimated date of delivery calculated at 12/10/2017. 2. Suggested venous lakes of the placenta. 3. LARON is within the lower limits of normal. Attention at follow-up recommended. - driller's assistant on board appreciate the recommendations Hyponatremia/Hypokalemia: - improved - monitor Anemia in Hg 10 to 8.9 no signs of bleeding monitor Impaired Fasting Glucose - check A1c 5.0 - fasting glucose today normal Depression, anxiety discussed Celexa with OB moisés Zazueta to resume it Vitamin D deficiency; Continue supplements DVT Px: SCDs Lovenox- Moisés with OB Code Status: Full Code Disposition: possible d/c in AM when medically stable Current Inpatient Medications: Current Inpatient Medications Medications (Trade) Dose Ordered Sig/[place] Route Start Time Stop Time Status Last Admin Dose Admin Potassium Chloride/Sodium Chloride 1,000 ml @ 125 mls/hr Q8H IV 06/28/17 23:30 07/28/17 23:29 06/30/17 10:38 100 MLS/HR Acetaminophen (Tylenol Tab) 650 mg Q4H PRN PO 06/28/17 22:15 07/28/17 22:14 Miscellaneous Information 1 ea DAILY PRN N/A 06/28/17 23:24 07/28/17 23:23 Prenat Multivit/ [place]/Iron/Folic Ac ( Vitamin Tab) 1 tab DAILY PO 06/29/17 09:00 07/29/17 08:59 06/30/17 10:38 1 TAB Ceftriaxone Sodium 1 gm/ Dextrose 50 ml @ 100 mls/hr DAILY@2100 IV 06/29/17 21:00 07/04/17 21:29 06/29/17 21:05 100 MLS/HR Ferrous Sulfate (Feosol Tab) 325 mg QAM PO 06/29/17 09:00 07/29/17 08:59 06/30/17 10:38 325 MG Azithromycin 250 mg/Dextrose 252.5 ml @ 126.25 mls/ hr DAILY@0000 IV 06/30/17 00:00 07/05/17 01:59 06/29/17 23:49 126.25 MLS/HR Cholecalciferol (Vitamin D Tab) 1,000 inter.unit QAM PO 06/29/17 13:00 07/29/17 12:59 06/30/17 10:38 1,000 INTER.UNIT Menthol ([place]) 1 terrence PRN PRN TERRENCE 06/29/17 22:45 07/29/17 22:44
[2017-06-30] MEDS ORDERED: CITALOPRAM 20 MG TAB PO ONE (13:45)
[2017-06-30 14:02] LABS: INR 0.9 (0.9-1.1); PTT PATIENT 27.5 SECONDS (21.0-31.0)
--- NOTE | 2017-06-30 14:39 | Progress Note ---
Progress Note Date of Service Jun 30, 2017. Progress Note EMERGENCY SPECIALIST Note FHT 146 no OB concerns will get FHT daily till discharge anticipate d/c in AM follow up in office after discharge
[2017-06-30 15:30] VITALS: BP 119/56; PULSE 93; TEMP 36.4; O2SAT 98
[2017-06-30 20:00] VITALS: BP 113/71; PULSE 89; TEMP 36.6; O2SAT 98
[2017-06-30] MEDS: CEFTRIAXONE SOD INJ 1000 MG in DEXTROSE 5% 50ML IV SCH (20:44)
[2017-07-01] MEDS: AZITHROMYCIN 250 MG / D5W 250 ML IV SCH ×2 (00:12)
[2017-07-01 00:18] VITALS: BP 120/60; PULSE 89; TEMP 36.4; O2SAT 98
[2017-07-01 05:10] VITALS: BP 96/51; PULSE 73; TEMP 36.8; O2SAT 96
[2017-07-01 06:11] LABS: BASO % 0.3 %; BASO ABS # 0.02 K/uL (0-0.2); HEMOGLOBIN 9.2 g/dL (12.0-16.0); IG# 0.04 K/uL (0.00-0.02); LYMPH % 17.3 %; LYMPH ABS # 1.04 K/uL (1.2-3.4); MEAN CORPUSCULAR HEMOGLOBIN 30.8 pg (25-34); MEAN CORPUSCULAR HGB CONC 35.4 g/dl (32-36); MEAN PLATELET VOLUME 10.2 fL (7.4-10.4); MONO % 5.8 %; MONO ABS # 0.35 K/uL (0.11-0.59); NEUT % 70.9 %; NEUT ABS # 4.27 K/uL (1.4-6.5); PLATELET COUNT 207 K/uL (130-400); RED CELL DISTRIBUTION WIDTH CV 13.3 % (11.5-14.5); RED CELL DISTRIBUTION WIDTH SD 42.6 fL (36.4-46.3); WHITE BLOOD COUNT 6.02 K/uL (4.8-10.8)
[2017-07-01 06:48] LABS: CALCIUM 7.8 mg/dl (8.5-10.1); CREATININE 0.48 mg/dl (0.60-1.20); POTASSIUM 3.7 mmol/L (3.5-5.1)
[2017-07-01] MEDS: NSS + 20MEQ KCL 1000ML 1,000 ML IV SCH ×2 (07:34→16:50)
[2017-07-01 08:15] VITALS: BP 101/56; PULSE 82; TEMP 36.9; O2SAT 98
[2017-07-01] MEDS: FERROUS SULFATE 325 MG TAB PO SCH (08:34)
[2017-07-01] MEDS: PRENATAL VITAMIN TAB PO SCH (08:34)
[2017-07-01] MEDS: CHOLECALCIFEROL PO SCH (08:35)
[2017-07-01] MEDS ORDERED: ENOXAPARIN 40 MG/0.4 ML SYR SQ SCH (09:00)
[2017-07-01] MEDS ORDERED: CITALOPRAM 20 MG TAB PO SCH (09:00)
[2017-07-01 12:01] VITALS: BP 118/60; PULSE 80; TEMP 36.5; O2SAT 99
[2017-07-01 15:52] VITALS: BP 110/61; PULSE 87; TEMP 36.5; O2SAT 100
--- NOTE | 2017-07-01 16:07 | Progress Note ---
Medicine Progress Note Date & Time of Visit: Jul 01, 2017 at 16:02. Subjective patient seen resting in bed, comfortable states she feels better overall no dyspnea, cough resolved no chest pain, abdominal pain denies other symptoms states she is ready and would like to be discharged today Objective Last 8 Hrs Date Time Temp Pulse Resp B/P (MAP) Pulse Ox O2 Delivery O2 Flow Rate FiO2 07/01/17 15:52 36.5 87 20 110/61 (77) 100 Room Air 07/01/17 12:01 36.5 80 18 118/60 (79) 99 Room Air 07/01/17 12:00 Room Air 07/01/17 08:15 36.9 82 18 101/56 (71) 98 Room Air Physical Exam: General- oriented x 3, not in distress, speaks in sentences with no effort Neck- no JVD Lungs- clear breath sounds bilaterally, no rales/wheezes Heart- normal rate, regular rhythm; no murmurs Abdomen- normal bowel sounds, soft, nontender Extremities- no pretibial edema, no calf tenderness Neuro- alert, oriented x 3; no gross focal neuro deficits Skin- warm & dry Laboratory Results: Last 24 Hours Test 07/01/17 05:41 White Blood Count 6.02 K/uL Red Blood Count 2.99 M/uL Hemoglobin 9.2 g/dL Hematocrit 26.0 % Mean Corpuscular Volume 87.0 fL Mean Corpuscular Hemoglobin 30.8 pg Mean Corpuscular Hemoglobin Concent 35.4 g/dl Platelet Count 207 K/uL Mean Platelet Volume 10.2 fL Neutrophils (%) (Auto) 70.9 % Lymphocytes (%) (Auto) 17.3 % Monocytes (%) (Auto) 5.8 % Eosinophils (%) (Auto) 5.0 % Basophils (%) (Auto) 0.3 % Neutrophils # (Auto) 4.27 K/uL Lymphocytes # (Auto) 1.04 K/uL Monocytes # (Auto) 0.35 K/uL Eosinophils # (Auto) 0.30 K/uL Basophils # (Auto) 0.02 K/uL RDW Standard Deviation 42.6 fL RDW Coefficient of Variation 13.3 % Immature Granulocyte % (Auto) 0.7 % Immature Granulocyte # (Auto) 0.04 K/uL Sodium Level 136 mmol/L Potassium Level 3.7 mmol/L Chloride Level 106 mmol/L Carbon Dioxide Level 23 mmol/L Anion Gap 7.0 mmol/L Blood Urea Nitrogen 5 mg/dl Creatinine 0.48 mg/dl Est Creatinine Clear Calc Drug Dose 175.8 ml/min Estimated GFR () 148.3 Estimated GFR (Non- 128.0 BUN/Creatinine Ratio 10.2 Random Glucose 83 mg/dl Calcium Level 7.8 mg/dl Assessment & Plan SEPSIS SECONDARY TO PNEUMONIA, COMMUNITY ACQUIRED, RIGHT LOWER LOBE Presented with Pleuritic chest pain, cough, fever, tachycardia, elevated WBCs CXR: suggestive of Small focal airspace opacity in the right medial lung base consistent with a pneumonia. Could not tolerated PO Abx secondary to nausea/vomiting - Flu tests: negative Blood cultures: negative so far Strep: negative - clinically improved afebrile, symptoms resolved - received Ceftri IV 3 days, Azithromycin x 4 days IV NSS + K - d/c home with: Augmentin BID x 4 days Azithromycin PO x 1 day - advised to drink plenty of fluids ff up with PCP in 3-5 days : , 16 weeks US: 1. Single living intrauterine gestation with estimated gestational age by ultrasound of 16 weeks 3 days and estimated date of delivery calculated at 12/10/2017. 2. Suggested venous lakes of the placenta. 3. LARON is within the lower limits of normal. Attention at follow-up recommended. - coremaking machine setter on board heart tones monitored daily - cleared for d/c per OB ff up with OB in 1 week Hyponatremia/Hypokalemia: - improved - monitor Anemia in Hg 10 to 9.2 no signs of bleeding monitor Depression, anxiety discussed Celexa with OB zoran Zazueta to resume Celexa Vitamin D deficiency; Continue supplements DVT Px: SCDs Lovejeanax- Ok with OB Code Status: Full Code Disposition: d/c home ff up with PCP in 3-5 days ff up with OB in 1 week Current Inpatient Medications: Current Inpatient Medications Medications (Trade) Dose Ordered Sig/Hernan Route Start Time Stop Time Status Last Admin Dose Admin Potassium Chloride/Sodium Chloride 1,000 ml @ 125 mls/hr Q8H IV 06/28/17 23:30 07/28/17 23:29 07/01/17 07:34 125 MLS/HR Acetaminophen (Tylenol Tab) 650 mg Q4H PRN PO 06/28/17 22:15 07/28/17 22:14 Miscellaneous Information 1 ea DAILY PRN N/A 06/28/17 23:24 07/28/17 23:23 Prenat Multivit/ [place]/Iron/Folic Ac ( Vitamin Tab) 1 tab DAILY PO 06/29/17 09:00 07/29/17 08:59 07/01/17 08:34 1 TAB Ceftriaxone Sodium 1 gm/ Dextrose 50 ml @ 100 mls/hr DAILY@2100 IV 06/29/17 21:00 07/04/17 21:29 06/30/17 20:44 100 MLS/HR Ferrous Sulfate (Feosol Tab) 325 mg QAM PO 06/29/17 09:00 07/29/17 08:59 07/01/17 08:34 325 MG Azithromycin 250 mg/Dextrose 252.5 ml @ 126.25 mls/ hr DAILY@0000 IV 06/30/17 00:00 07/05/17 01:59 07/01/17 00:12 126.25 MLS/HR Cholecalciferol (Vitamin D Tab) 1,000 inter.unit QAM PO 06/29/17 13:00 07/29/17 12:59 07/01/17 08:35 1,000 INTER.UNIT Menthol (Nice Terrence) 1 terrence PRN PRN TERRENCE 06/29/17 22:45 07/29/17 22:44 Enoxaparin Sodium (Lovenox Inj) 40 mg QAM SQ 07/01/17 09:00 07/31/17 08:59 07/01/17 08:35 40 MG Citalopram Hydrobromide (celeXA TAB) 20 mg DAILY PO 07/01/17 09:00 07/31/17 08:59 07/01/17 08:35 20 MG
[2017-07-01] MEDS ORDERED: FRRS300 PO (16:09)
[2017-07-01] MEDS ORDERED: AZIT-57 PO (16:09)
[2017-07-01] MEDS ORDERED: AMOX1TAB43 PO (16:09)
--- NOTE | 2017-07-01 16:14 | Discharge Instructions ---
Discharge Instructions Date of Service Jul 01, 2017. Admission Reason for Admission: Pneumonia Discharge Discharge Diagnosis / Problem: PNEUMONIA Discharge Goals Goal(s): Diagnostic testing, Therapeutic intervention Activity Recommendations Activity Limitations: as noted below (INCREASE ACTIVITY GRADUALLY TOLERATED) Lifting Limitations: until after follow-up appointment Exercise/Sports Limitations: until after follow-up appointment . Instructions / Follow-Up Instructions / Follow-Up PLEASE REVIEW YOUR NEW MEDICATION LIST AND FOLLOW INSTRUCTIONS CAREFULLY. CALL YOUR PRIMARY CARE PHYSICIAN OR RETURN TO ER IMMEDIATELY IF WITH RECURRENCE OF SYMPTOMS, INCREASING COUGH, SHORTNESS OF BREATH, CHEST PAIN, FEVER/CHILLS, NAUSEA/ VOMITING. FOLLOW UP WITH DR. HERNÁNDEZ ON Monday07/06/17 AT 11:00am. FOLLOW UP WITH OB-DIRECTOR OF DIGITAL MARKETING IN 1 WEEK. Current Hospital Diet Patient's current hospital diet: Regular Diet Discharge Diet Recommended Diet: Regular Diet Pending Studies Studies pending at discharge: no Laboratory Results Hemoglobin A1c Test 06/29/17 06:26 Range/Units Estimated Average Glucose 97 mg/dl Hemoglobin A1c 5.0 4.5-5.6 % Medical Emergencies . Who to Call and When: Medical Emergencies: If at any time you feel your situation is an emergency, please call 911 immediately. . Non-Emergent Contact Non-Emergency issues call your: Primary Care Provider, Surgeon (OB [facility]) Call Non-Emergent contact if: you have a fever, your pain is not controlled, your pain is worsening, you have any medication questions . . "Provider Documentation" section prepared by Pk Poole. . VTE Core Measure Inpt VTE Proph given/why not?: Enoxaparin (Lovenox)SQ
--- NOTE | 2017-07-01 16:14 | Discharge Summary ---
Discharge Summary Date of Service Jul 01, 2017. Discharge Summary Admission Date: Jun 28, 2017 at 22:16 Discharge Date: Jul 01, 2017 Discharge Disposition: Home Principal Diagnosis: SEPSIS SECONDARY TO PNEUMONIA, COMMUNITY ACQUIRED, RIGHT LOWER LOBE Secondary Diagnoses/Problems: Please refer to hospital course below. Procedures: CHEST ONE VIEW PORTABLE HISTORY: cough COMPARISON: None. FINDINGS: Small focal airspace opacity within the right medial lung base. The left lung is clear. The heart is normal in size. No pleural effusions. No pneumothorax. IMPRESSION: Small focal airspace opacity in the right medial lung base consistent with a pneumonia. LIMITED (US) HISTORY: 32 years-old Female DATING pelvic ultrasound in a patient to confirm gestational age. Patient presents with acute pneumonia COMPARISON: None available TECHNIQUE: Multiple real-time sonographic images of the deep pelvic structures were obtained transabdominally assessing grayscale appearance and color flow FINDINGS: Anteflexed gravid uterus is noted. Cervical length is 4.2 cm, within normal limits. Placenta is noted within an anterior location and demonstrates ill-defined central areas of decreased echogenicity which may reflect venous lakes. LARON is 10.5, lower limits of normal. Head circumference measures 14.0 cm, correlating with estimated gestational age of 17 weeks 3 days. BPD measures 3.6 cm correlating with estimated gestational age of 17 weeks 1 day. Abdominal circumference measures 11.5 cm correlating with estimated gestational age of 17 weeks 2 days. Femur length measures 2.2 cm correlating with estimated gestational age of 16 weeks 3 days. heart rate measures 149 bpm. movements were reported during the exam by the green end worker. Fetus is in a breech presentation. Overall gestational age is calculated at 16 weeks 3 days with estimated date of delivery calculated at 12/10/2017. IMPRESSION: 1. Single living intrauterine gestation with estimated gestational age by ultrasound of 16 weeks 3 days and estimated date of delivery calculated at 12/10/2017. 2. Suggested venous lakes of the placenta. 3. LARON is within the lower limits of normal. Attention at follow-up recommended. Consultations: television servicer Pending Studies/Follow-Up: Please refer to hospital course below. Medication Reconciliation New Medications: Amoxicillin & Pot Clavulanate (Amoxicillin/Clavulanate P) 1 Tab Tab 875 MG PO BID for 4 Days, #8 TAB 0 Refills Azithromycin (Azithromycin) 250 Mg Tab 500 MG PO DAILY for 1 Day, #1 TAB take on 07/02/17 Ferrous Sulfate (Ferrous Sulfate) 325 Mg Tab 325 MG PO QAM for 30 Days, #30 TAB 0 Refills Continued Medications: Cholecalciferol (Vitamin D) Unknown Strength Tab 1 TAB PO DAILY Citalopram Hydrobromide (Celexa) 20 Mg Tab 20 MG PO DAILY Multivit/Min/Iron/Fol Ac/Pren ( Vitamin) Tab 1 TAB PO DAILY Admission Information HPI (per Admitting provider): Patient is a 32 yr female with PMH of Depression, anxiety, Vitamin D deficiency , and allergies who is currently 16 weeks presents with history of fever, cough, right sided pleuritic chest pain and post nasal drip since 3 days duration. Patient's chest pain is right sided, sharp to dull, increases with deep inspiration. She has been having low grade fever since 2 days duration. Reports associated mild SOB and cough with intermittent expectoration. She received Augmentin in ED which she vomited secondary to nausea. CXR is suggestive of Pneumonia and Flu screen is negative. Had monitor was checked in ED. Denies any history of dizziness, pedal edema, wheezing, hemoptysis, fall, weakness, numbness, change in vision, bowel/bladder habit changes, abdominal pain, diarrhea, weight loss, dysuria, recent travel, sick contact, recent change in medications. Physical Exam (per Admitting): General Appearance: WD/WN, no apparent distress Head: normocephalic, atraumatic Eyes: normal inspection, PERRL, EOMI, sclerae normal ENT: normal ENT inspection, hearing grossly normal Neck: supple, trachea midline Respiratory/Chest: chest non-tender, lungs clear, no respiratory distress, no accessory muscle use, + decreased breath sounds (on right side) Cardiovascular: regular rate, rhythm, no edema, no murmur, + tachycardia Abdomen/GI: normal bowel sounds, non tender, soft, + pertinent finding ( ) Back: normal inspection Extremities/Musculoskelatal: normal inspection, no pedal edema Neurologic/Psych: lead clinical research coordinator II-XII nml as tested, no motor/sensory deficits, alert , normal mood/affect, oriented x 3 Skin: normal color, warm/dry Hospital Course SEPSIS SECONDARY TO PNEUMONIA, COMMUNITY ACQUIRED, RIGHT LOWER LOBE Presented with Pleuritic chest pain, cough, fever, tachycardia, elevated WBCs CXR: suggestive of Small focal airspace opacity in the right medial lung base consistent with a pneumonia. Could not tolerated PO Abx secondary to nausea/vomiting - Flu tests: negative Blood cultures: negative so far Strep: negative - clinically improved afebrile, symptoms resolved - received Ceftri IV 3 days, Azithromycin x 4 days IV NSS + K - d/c home with: Augmentin BID x 4 days Azithromycin PO x 1 day - advised to drink plenty of fluids ff up with PCP in 3-5 days : , 16 weeks US: 1. Single living intrauterine gestation with estimated gestational age by ultrasound of 16 weeks 3 days and estimated date of delivery calculated at 12/10/2017. 2. Suggested venous lakes of the placenta. 3. LARON is within the lower limits of normal. Attention at follow-up recommended. - television servicer on board heart tones monitored daily - cleared for d/c per OB ff up with OB in 1 week Hyponatremia/Hypokalemia: - improved - monitor Anemia in Hg 10 to 9.2 no signs of bleeding monitor Depression, anxiety discussed Celexa with OB zoran Zazueta to resume Celexa Vitamin D deficiency; Continue supplements Disposition: d/c home ff up with PCP in 3-5 days ff up with OB in 1 week Total time spent on discharge = 30 minutes This includes examination of the patient, discharge planning, medication reconciliation, and communication with other providers. Discharge Instructions Discharge Instructions Date of Service Jul 01, 2017. Admission Reason for Admission: Pneumonia Discharge Discharge Diagnosis / Problem: PNEUMONIA Discharge Goals Goal(s): Diagnostic testing, Therapeutic intervention Activity Recommendations Activity Limitations: as noted below (INCREASE ACTIVITY GRADUALLY TOLERATED) Lifting Limitations: until after follow-up appointment Exercise/Sports Limitations: until after follow-up appointment . Instructions / Follow-Up Instructions / Follow-Up PLEASE REVIEW YOUR NEW MEDICATION LIST AND FOLLOW INSTRUCTIONS CAREFULLY. CALL YOUR PRIMARY CARE PHYSICIAN OR RETURN TO ER IMMEDIATELY IF WITH RECURRENCE OF SYMPTOMS, INCREASING COUGH, SHORTNESS OF BREATH, CHEST PAIN, FEVER/CHILLS, NAUSEA/ VOMITING. FOLLOW UP WITH DR. HERNÁNDEZ ON Monday07/06/17 AT 11:00am. FOLLOW UP WITH OB-BUILDING CONSTRUCTION FOREMAN IN 1 WEEK. Current Hospital Diet Patient's current hospital diet: Regular Diet Discharge Diet Recommended Diet: Regular Diet Pending Studies Studies pending at discharge: no Laboratory Results Hemoglobin A1c Test 06/29/17 06:26 Range/Units Estimated Average Glucose 97 mg/dl Hemoglobin A1c 5.0 4.5-5.6 % Medical Emergencies . Who to Call and When: Medical Emergencies: If at any time you feel your situation is an emergency, please call 911 immediately.
[2017-07-01 16:25] VITALS: BP 110/61; PULSE 87; TEMP 36.5; O2SAT 100
[2017-07-01] MEDS ORDERED: AZITHROMYCIN 250 MG TAB PO ONE (16:45)
[2017-07-01] MEDS ORDERED: AMOXICILLIN/CLAVULANATE TAB 875 MG TAB PO ONE (16:45)
== END 2017-07-01 17:40 | disposition home or self-care (01) | DRG 781 ==
LOC: C.EDB 17:59 → C.2E 22:16 → ENRESERV 22:28
PROVIDERS: ADMIT Internal Medicine; ATTEND Internal Medicine
DX: O99.512 Diseases of the respiratory system complicating pregnancy, second trimester (principal); O99.342 Other mental disorders complicating pregnancy, second trimester; O99.012 Anemia complicating pregnancy, second trimester; E87.1 Hypo-osmolality and hyponatremia; A41.9 Sepsis, unspecified organism; J18.9 Pneumonia, unspecified organism; D64.9 Anemia, unspecified; E87.6 Hypokalemia; F32.9 Major depressive disorder, single episode, unspecified; F41.9 Anxiety disorder, unspecified; E55.9 Vitamin D deficiency, unspecified; Z3A.16 16 weeks gestation of pregnancy; Z87.01 Personal history of pneumonia (recurrent); Z83.3 Family history of diabetes mellitus; Z82.49 Family history of ischemic heart disease and other diseases of the circulatory system